=== PATIENT | female | born 1950 | race Caucasian/White ===

== ENCOUNTER → 2017-01-05 | Day surgery (SDC) | payer MEDICARE, MEDICAID ==
[~2017-01-05] MED LIST: Lactated Ringers 1,000 ML IV SCH; Propofol 200 MG/20 ML SDV IV ONE
[2017-01-05 08:31] VITALS: BP 130/72
--- NOTE | 2017-01-05 12:30 | OR ---
DATE OF OPERATION: 01/05/2017 PREOPERATIVE DIAGNOSIS: FOLLOWUP POLYPS. POSTOPERATIVE DIAGNOSIS: FOLLOWUP POLYPS. SURGEON: Yossi Arora MD PROCEDURE: FULL-LENGTH COLONOSCOPY. ANESTHESIA: ROLLER MAN due to morbid obesity, COPD and CHF. COMPLICATIONS: None. SPECIMEN: None. FINDINGS: 1. Full-length colonoscopy. 2. Mild sigmoid diverticulosis. RECOMMENDATIONS: Follow up colonoscopy in 5 years. INDICATIONS: The patient had a prior colonoscopy with polyps removed. She was told to have a 3-year followup by her surgeon. DESCRIPTION OF PROCEDURE: The patient was prepped and draped, placed in the left lateral decubitus position. A lubricated Olympus colonoscope inserted and easily advanced to the cecum where we directly visualized the ileocecal valve and appendiceal orifice. The bowel prep was excellent. Upon withdrawal of the scope throughout the entire length of the colon, I found no signs of any polyps, mass, ulceration, or bleeding sites. No vascular abnormalities or signs of colitis. The patient did have a few scattered diverticula in the sigmoid area which were mild in severity. The rectal vault appeared benign. Retroflexion of scope in the rectum showed no anal lesions. Air was suctioned. Scope removed without complication. ALEX/MONALISA /[id number]
== END ==
LOC: CC.SDS 06:30
PROVIDERS: ATTEND Family Medicine
DX: Z12.11 Encounter for screening for malignant neoplasm of colon (principal); Z86.010 Personal history of colon polyps; K57.30 Diverticulosis of large intestine without perforation or abscess without bleeding; I10 Essential (primary) hypertension; E78.00 Pure hypercholesterolemia, unspecified; E03.9 Hypothyroidism, unspecified; J44.9 Chronic obstructive pulmonary disease, unspecified; J45.909 Unspecified asthma, uncomplicated; I50.9 Heart failure, unspecified; E11.9 Type 2 diabetes mellitus without complications; Z88.0 Allergy status to penicillin; Z88.8 Allergy status to other drugs, medicaments and biological substances; Z91.018 Allergy to other foods; Z79.82 Long term (current) use of aspirin; Z79.899 Other long term (current) drug therapy; Z79.84 Long term (current) use of oral hypoglycemic drugs; Z90.710 Acquired absence of both cervix and uterus; Z98.890 Other specified postprocedural states
CPT/HCPCS: 82962; G0105; J2704; J7120; 00810

== ENCOUNTER 2020-03-04 22:15 | Emergency (ER) | payer MEDICARE, MEDICAID ==
[2020-03-04] MEDS ORDERED: Ondansetron 4 MG Tab.DIS PO ONE (22:16)
[2020-03-04 22:39] VITALS: BP 146/84; PULSE 88
--- NOTE | 2020-03-04 23:03 | EDM.PDOC ---
ED HPI GENERAL MEDICAL PROBLEM - General Chief Complaint: Gastrointestinal Problem Stated Complaint: vomiting Time Seen by Provider: 03/04/20 22:41 Source of Information: Reports: Patient History Limitations: Reports: No Limitations - History of Present Illness INITIAL COMMENTS - FREE TEXT/NARRATIVE: Janna is a 69 year old female who presents to the ER with complaints of vom iting x2 this evening. States "basically vomited up my whole supper". Denies nausea at present. Is currently moving in to a trailer house from her apartment and thinks it may be related to stress. Denies any abdominal pain. Was feeling fine all day until this happened. Denies diarrhea. No fevers. No exposure to covid. No sinus congestion, chest congestion, cough. Does complain of right w rist pain due to lifting a lot of boxes. Onset: Today, Sudden Duration: Minutes:, Improving Location: Reports: Abdomen Associated Symptoms: Reports: Nausea/Vomiting. Denies: Confusion, Chest Pain, Cough, Fever/Chills, Loss of Appetite, Malaise, Shortness of Breath, Syncope, Weakness - Related Data Allergies Allergy/AdvReac Type Severity Reaction Status Date / Time codeine Allergy Cannot Verified 03/04/20 22:44 Remember lisinopril Allergy Cannot Verified 03/04/20 22:44 Remember Penicillins Allergy Cannot Verified 03/04/20 22:44 Remember red dye Allergy Cannot Verified 03/04/20 22:44 Remember strawberry Allergy Cannot Verified 03/04/20 22:44 Remember Home Meds: Home Meds Acetaminophen 1,000 mg PO Q4HR PRN 01/04/17 [History] Albuterol Sulfate [Proair Hfa] 2 puff IH Q6HR PRN 01/04/17 [History] Aspirin [Halfprin] 81 mg PO DAILY 01/04/17 [History] Azelastine HCl 2 spray NS BID 01/04/17 [History] Betamethasone Valerate 1 applic TP BID 01/04/17 [History] Cholecalciferol (Vitamin D3) [Vitamin D3] 2,000 unit PO DAILY 01/04/17 [History] Ciclopirox Olamine [Ciclopirox] 1 applic TP BID 01/04/17 [History] Cyanocobalamin (Vitamin B-12) [Vitamin B-12] 1,000 mcg PO DAILY 01/04/17 [History] Diclofenac Sodium [Voltaren 1% Gel] 100 gm TOP QID PRN 01/04/17 [History] Fenofibrate Nanocrystallized [Fenofibrate] 145 mg PO DAILY 01/04/17 [History] Levothyroxine Sodium [Synthroid] 100 mcg PO DAILY 01/04/17 [History] Loperamide HCl [Anti-Diarrheal] 2 mg PO QID PRN 01/04/17 [History] Losartan Potassium 100 mg PO DAILY 01/04/17 [History] Magnesium 250 mg PO BID 01/04/17 [History] Metoprolol Succinate 25 mg PO DAILY 01/04/17 [History] Montelukast Sodium 10 mg PO DAILY 01/04/17 [History] Multivitamin [Gummi Bear Multivitamin] 1 each PO DAILY 01/04/17 [History] Oxybutynin Chloride [Oxybutynin Chloride ER] 5 mg PO DAILY 01/04/17 [History] Rosuvastatin Calcium [Crestor] 20 mg PO DAILY 01/04/17 [History] SitaGLIPtin [Januvia] 50 mg PO DAILY 01/04/17 [History] Tiotropium [Spiriva HandiHaler] 18 mcg INH DAILY 01/04/17 [History] Triamcinolone Acetonide [Triamcinolone Acetonide 0.1% Crm] 15 gm TOP TID 01/04/17 [History] metFORMIN HCl [Metformin HCl ER] 500 mg PO BID 01/04/17 [History] Past Medical History Cardiovascular History: Reports: High Cholesterol, Hypertension Genitourinary History: Reports: Other (See Below) (overactive bladder) Musculoskeletal History: Reports: Arthritis Endocrine/Metabolic History: Reports: Diabetes, Type II, Hypothyroidism Social & Family History - Tobacco Use Tobacco Use Status *Q: Unknown Ever Used Tobacco ED ROS GENERAL - Review of Systems Review Of Systems: See Below Constitutional: Denies: Fever, Chills, Malaise, Weakness HEENT: Denies: Ear Pain, Rhinitis, Throat Pain Respiratory: Denies: Shortness of Breath, Cough Cardiovascular: Denies: Chest Pain, Edema, Lightheadedness Endocrine: Denies: Fatigue GI/Abdominal: Reports: Nausea, Vomiting. Denies: Abdominal Pain : Reports: No Symptoms Musculoskeletal: Reports: Joint Pain Skin: Reports: No Symptoms Neurological: Reports: Weakness ED EXAM, GI/ABD - Physical Exam Exam: See Below Exam Limited By: No Limitations General Appearance: Alert, WD/WN, No Apparent Distress Ears: Normal External Exam, Normal TMs Nose: Normal Inspection, Normal Mucosa, No Blood Throat/Mouth: Normal Inspection, Normal Oropharynx Head: Normocephalic Neck: Normal Inspection, Supple, Non-Tender Respiratory/Chest: No Respiratory Distress, Lungs Clear, Normal Breath Sounds Cardiovascular: Regular Rate, Rhythm GI/Abdominal Exam: Normal Bowel Sounds, Soft, Non-Tender Extremities: Other (wrists are tender with palpation. Sore with range of motion. No noted injury, has been using repetitively while moving.) Neurological: Alert, Oriented Course - Vital Signs Last Recorded V/S: Last Vital Signs Temp 97.8 F 03/04/20 22:18 Pulse 88 03/04/20 22:18 Resp 18 03/04/20 22:18 BP 146/84 H 03/04/20 22:18 Pulse Ox 92 L 03/04/20 22:18 - Orders/Labs/Meds Orders: Active Orders 24 hr Category Date Time Status C-REACTIVE PROTEIN [CHEM] Stat Lab 03/04/20 22:30 Received COMPREHENSIVE METABOLIC PN,CMP [CHEM] Stat Lab 03/04/20 22:30 Received UA RFX YAMINI AND CULT IF INDIC [URIN] Stat Lab 03/04/20 22:37 Ordered Labs: Laboratory Tests 03/04/20 03/04/20 Range/Units 22:15 22:30 WBC 12.4 H (5.0-10.0) 10^3/uL RBC 4.55 (4.00-5.50) 10^6/uL Hgb 12.8 (12.0-16.0) g/dL Hct 39.6 (37.0-47.0) % MCV 87.0 (82.0-94.0) fL MCH 28.1 (27.0-32.0) pg MCHC 32.3 L (33.0-38.0) g/dL RDW Coeff of Brandy 14.4 (11.0-15.0) % Plt Count 204 (150-400) 10^3/uL Neut % (Auto) 64.6 (35-85) % Lymph % (Auto) 26.0 (10-55) % [place] % (Auto) 6.9 (0-16) % Eos % (Auto) 2.3 (0-5) % Baso % (Auto) 0.2 (0-3) % Neut # (Auto) 7.98 H (1.80-7.00) 10^3/uL Lymph # (Auto) 3.21 (1.00-4.80) 10^3/uL [place] # (Auto) 0.85 H (0.00-0.80) 10^3/uL Eos # (Auto) 0.29 (0.00-0.45) 10^3/uL Baso # (Auto) 0.03 10^3/uL SARS CoV-2 RNA Rapid ESEQUIEL Negative (NEGATIVE) - Re-Assessments/Exams Free Text/Narrative Re-Assessment/Exam: 03/04/20 23:11 labs are all stable. discussed with patient. She continues to deny any nausea or abdominal discomfort. Does have WBCs in urine but denies any urinary complaints. Will wait on culture. Departure - Departure Time of Disposition: 23:12 Disposition: Home, Self-Care 01 Condition: Good Clinical Impression: Vomiting - Discharge Information *PRESCRIPTION DRUG MONITORING PROGRAM REVIEWED*: No *COPY OF PRESCRIPTION DRUG MONITORING REPORT IN PATIENT JEWELS: No Instructions: Vomiting, Adult Additional Instructions: 1. Push fluids 2. Tylenol or ibuprofen for wrist discomfort 3. Ice to wrists 4. Avoid excessive lifting or use of wrists 5. Zofran 4 mg under the tongue every 6 hours as needed for nausea 6. Follow up for persisting concerns. Sepsis Event Note (ED) - Evaluation Sepsis Screening Result: No Definite Risk - Focused Exam Vital Signs: Vital Signs Temp Pulse Resp BP Pulse Ox 03/04/20 22:18 97.8 F 88 18 146/84 H 92 L - My Orders Last 24 Hours: My Active Orders 03/04/20 22:30 C-REACTIVE PROTEIN [CHEM] Stat COMPREHENSIVE METABOLIC PN,CMP [CHEM] Stat 03/04/20 22:37 UA RFX YAMINI AND CULT IF INDIC [URIN] Stat - Assessment/Plan Last 24 Hours: My Active Orders 03/04/20 22:30 C-REACTIVE PROTEIN [CHEM] Stat COMPREHENSIVE METABOLIC PN,CMP [CHEM] Stat 03/04/20 22:37 UA RFX YAMINI AND CULT IF INDIC [URIN] Stat
[2020-03-04] MEDS ORDERED: Take Home: Ondansetron 4 MG Tab.DIS, 2 Tab Pack PO ONE (23:08)
== END 2020-03-04 23:21 | disposition home or self-care (01) ==
LOC: CC.ED 22:15
DX: R11.2 Nausea with vomiting, unspecified (principal); I10 Essential (primary) hypertension; E78.00 Pure hypercholesterolemia, unspecified; E11.9 Type 2 diabetes mellitus without complications; E03.9 Hypothyroidism, unspecified; Z20.828 Contact with and (suspected) exposure to other viral communicable diseases; Z88.5 Allergy status to narcotic agent; Z88.0 Allergy status to penicillin; Z88.8 Allergy status to other drugs, medicaments and biological substances; Z91.041 Radiographic dye allergy status; Z91.018 Allergy to other foods; Z79.82 Long term (current) use of aspirin; Z79.899 Other long term (current) drug therapy; Z79.84 Long term (current) use of oral hypoglycemic drugs
CPT/HCPCS: 36415; 80053; 81001; 85025; 86140; 87086; 99283; 99284; A9270-GY; U0002

== ENCOUNTER 2021-03-30 08:45 | Emergency (ER) | payer MEDICARE, OTHER, MEDICAID ==
[2021-03-30 08:54] VITALS: BP 151/90; PULSE 81
[2021-03-30] MEDS ORDERED: Ondansetron 4 MG Tab.DIS PO ONE (09:02)
--- NOTE | 2021-03-30 09:18 | EDM.PDOC ---
ED HPI GENERAL MEDICAL PROBLEM - General Chief Complaint: Gastrointestinal Problem Stated Complaint: HAD COVID BOOSTER YESTERDAY/DRY HEAVES Time Seen by Provider: 03/30/21 08:55 Source of Information: Reports: Patient History Limitations: Reports: No Limitations - History of Present Illness INITIAL COMMENTS - FREE TEXT/NARRATIVE: Janna is a 70 year old female who presents to ER with complaints of nausea since getting her COVID vaccine booster yesterday. She states she has had dry heaves, no vomiting. Mild body aches. Feels chills and states has had a low grade temp of "98.9 and that is high for me". No cough, chest congestion, sore throat. No abdominal pain. Has not taken anything for body aches or nausea. Onset: Gradual Duration: Hour(s):, Waxing/Waning Location: Reports: Abdomen, Generalized Quality: Reports: Ache Severity: Mild Improves with: Reports: None Associated Symptoms: Reports: Fever/Chills, Malaise, Nausea/Vomiting. Denies: Confusion, Chest Pain, Cough, Loss of Appetite, Shortness of Breath - Related Data Allergies Allergy/AdvReac Type Severity Reaction Status Date / Time codeine Allergy Cannot Verified 03/30/21 08:54 Remember lisinopril Allergy Cannot Verified 03/30/21 08:54 Remember Penicillins Allergy Cannot Verified 03/30/21 08:54 Remember red dye Allergy Cannot Verified 03/30/21 08:54 Remember strawberry Allergy Cannot Verified 03/30/21 08:54 Remember Home Meds: Home Meds Levothyroxine Sodium [Synthroid] 100 mcg PO DAILY 01/04/17 [History] Losartan Potassium 100 mg PO DAILY 01/04/17 [History] Magnesium 400 mg PO DAILY 01/04/17 [History] Metoprolol Succinate 25 mg PO DAILY 01/04/17 [History] Rosuvastatin Calcium [Crestor] 20 mg PO DAILY 01/04/17 [History] Aspirin [Halfprin] 81 mg PO DAILY 03/04/20 [History] Cetirizine HCl 10 mg PO DAILY 03/04/20 [History] Furosemide [Lasix] 20 mg PO DAILY PRN 03/04/20 [History] Ipratropium/Albuterol Sulfate [Iprat-Albut 0.5-3(2.5) MG/3 ML] 1 vial INH Q4HR PRN 03/04/20 [History] Multivitamin [Multivitamins] 1 cap PO DAILY 03/04/20 [History] Neomycin/Polymyxin B/Dexametha [Zpkpbm-Duwia-Pzetffo Eye Ointm] 1 applic TOP BID 03/04/20 [History] Potassium Gluconate [Potassium] 99 mg PO DAILY 03/04/20 [History] Vitamin B Complex 1 cap PO DAILY 03/04/20 [History] amLODIPine Besylate [Amlodipine Besylate] 5 mg PO DAILY 03/04/20 [History] sitaGLIPtin Phos/Metformin HCl [Janumet 50-1,000 MG] 1 tab PO BIDMEALS 03/04/20 [History] Calcium Carbonate/Vitamin D3 [Calcium 500 + Vit D 400] 1 tab PO DAILY 03/30/21 [History] Fish Oil/[place]-3 Fatty Acids [Fish Oil 1,000 MG] 200 mg PO DAILY 03/30/21 [History] Ondansetron [Zofran ODT] 4 mg PO Q6H PRN #30 tab.dis 03/30/21 [Rx] Past Medical History Cardiovascular History: Reports: High Cholesterol, Hypertension Genitourinary History: Reports: Other (See Below) Musculoskeletal History: Reports: Arthritis Endocrine/Metabolic History: Reports: Diabetes, Type II, Hypothyroidism - Infectious Disease History Infectious Disease History: Reports: None - Past Surgical History Cardiovascular Surgical History: Reports: Valve Replacement GI Surgical History: Reports: Cholecystectomy Female Surgical History: Reports: Hysterectomy Social & Family History - Tobacco Use Tobacco Use Status *Q: Never Tobacco User - Caffeine Use Caffeine Use: Reports: Soda - Recreational Drug Use Recreational Drug Use: No ED ROS GENERAL - Review of Systems Review Of Systems: See Below Constitutional: Reports: Fever, Chills, Malaise HEENT: Reports: Rhinitis. Denies: Ear Pain, Sinus Problem, Throat Pain, Vertigo Respiratory: Denies: Shortness of Breath, Cough Cardiovascular: Denies: Chest Pain, Edema, Lightheadedness Endocrine: Reports: Fatigue GI/Abdominal: Reports: Nausea. Denies: Abdominal Pain, Constipation, Diarrhea, Vomiting : Reports: No Symptoms Musculoskeletal: Reports: Muscle Pain Skin: Reports: No Symptoms Neurological: Reports: Weakness Psychiatric: Reports: No Symptoms ED EXAM, GI/ABD - Physical Exam Exam: See Below Exam Limited By: No Limitations General Appearance: Alert, WD/WN, No Apparent Distress Ears: Normal External Exam, Normal TMs Nose: Normal Inspection, Normal Mucosa, No Blood Throat/Mouth: Normal Inspection, Normal Oropharynx Head: Normocephalic Neck: Normal Inspection, Supple, Non-Tender Respiratory/Chest: No Respiratory Distress, Lungs Clear, Normal Breath Sounds Cardiovascular: Regular Rate, Rhythm GI/Abdominal Exam: Normal Bowel Sounds, Soft, Non-Tender Extremities: Normal Inspection, Pedal Edema (1+) Neurological: Alert, Oriented Skin Exam: Warm, Dry Course - Vital Signs Last Recorded V/S: Last Vital Signs Temp 100.1 F 03/30/21 08:51 Pulse 81 03/30/21 08:51 Resp 16 03/30/21 08:51 BP 151/90 H 03/30/21 08:51 Pulse Ox 96 03/30/21 08:51 - Orders/Labs/Meds Meds: Medications Discontinued Medications Generic Name Dose Route Start Last Admin Trade Name Freq PRN Reason Stop Dose Admin Ondansetron HCl 4 mg 03/30/21 09:02 03/30/21 09:06 Ondansetron 4 Mg Tab.Dis PO 03/30/21 09:03 4 mg ONETIME ONE Administration Departure - Departure Time of Disposition: 09:16 Disposition: Home, Self-Care 01 Condition: Good Clinical Impression: Nausea after vaccination - Discharge Information *PRESCRIPTION DRUG MONITORING PROGRAM REVIEWED*: No *COPY OF PRESCRIPTION DRUG MONITORING REPORT IN PATIENT JEWELS: No Prescriptions: Ondansetron [Zofran ODT] 4 mg PO Q6H PRN #30 tab.dis PRN Reason: Nausea Instructions: Nausea, Adult Referrals: Martha Irene ASSISTANT CASE MANAGER [Primary Care Provider] - Forms: ED Department Discharge Additional Instructions: 1. Push fluids 2. Zofran 4 mg under your tongue every 4-6 hours as needed for nausea 3. Small soft meals 4. Follow up if persisting concerns. Sepsis Event Note (ED) - Evaluation Sepsis Screening Result: No Definite Risk - Focused Exam Vital Signs: Vital Signs Temp Pulse Resp BP Pulse Ox 03/30/21 08:51 100.1 F 81 16 151/90 H 96
== END 2021-03-30 09:23 | disposition home or self-care (01) ==
LOC: CC.ED 08:45 → SUPCPDRO 08:45 → CC.ED 09:23
DX: R11.0 Nausea (principal); T50.B95A Adverse effect of other viral vaccines, initial encounter; R60.0 Localized edema; E78.00 Pure hypercholesterolemia, unspecified; I10 Essential (primary) hypertension; E03.9 Hypothyroidism, unspecified; E11.9 Type 2 diabetes mellitus without complications; Z88.5 Allergy status to narcotic agent; Z88.0 Allergy status to penicillin; Z91.018 Allergy to other foods; Z88.8 Allergy status to other drugs, medicaments and biological substances; Z79.82 Long term (current) use of aspirin; Z79.899 Other long term (current) drug therapy
CPT/HCPCS: 99283; A9270-GY

== ENCOUNTER 2021-09-02 15:34 | Emergency (ER) | payer MEDICARE, OTHER, MEDICAID ==
[2021-09-02 15:46] VITALS: BP 167/73; PULSE 81
[2021-09-02] MEDS ORDERED: Lidocaine 1% 5 ML VIAL INJECT ONE (15:53)
== END 2021-09-02 17:10 | disposition home or self-care (01) ==
LOC: CC.ED 15:34
DX: S62.617A Displaced fracture of proximal phalanx of left little finger, initial encounter for closed fracture (principal); S63.502A Unspecified sprain of left wrist, initial encounter; Z88.0 Allergy status to penicillin; Z88.5 Allergy status to narcotic agent; Z91.041 Radiographic dye allergy status; Z91.018 Allergy to other foods; Z79.899 Other long term (current) drug therapy; Z79.82 Long term (current) use of aspirin; W23.1XXA Caught, crushed, jammed, or pinched between stationary objects, initial encounter
CPT/HCPCS: 26605; 73110-LT; 73140-F4; 99283-25

== ENCOUNTER → 2022-05-19 | Day surgery (SDC) | payer MEDICARE, OTHER, MEDICAID ==
[~2022-05-19] MED LIST changes: +Ketamine 200 MG/20 ML MDV ONE; -Propofol 200 MG/20 ML SDV IV ONE; +Propofol 200 MG/20 ML SDV ONE; +fentaNYL 50 MCG/ML SDV ONE
[2022-05-19 08:52] VITALS: BP 142/76; PULSE 65
== END ==
LOC: CC.SDS 07:05
PROVIDERS: ATTEND Family Medicine
DX: K57.30 Diverticulosis of large intestine without perforation or abscess without bleeding (principal); I13.0 Hypertensive heart and chronic kidney disease with heart failure and stage 1 through stage 4 chronic kidney disease, or unspecified chronic kidney disease; I50.9 Heart failure, unspecified; E11.22 Type 2 diabetes mellitus with diabetic chronic kidney disease; N18.2 Chronic kidney disease, stage 2 (mild); J44.9 Chronic obstructive pulmonary disease, unspecified; F41.8 Other specified anxiety disorders; E78.5 Hyperlipidemia, unspecified; E03.9 Hypothyroidism, unspecified; I10 Essential (primary) hypertension; E55.9 Vitamin D deficiency, unspecified; Z79.899 Other long term (current) drug therapy; Z88.0 Allergy status to penicillin; Z86.010 Personal history of colon polyps; Z88.8 Allergy status to other drugs, medicaments and biological substances; Z88.5 Allergy status to narcotic agent; Z91.018 Allergy to other foods; Z79.82 Long term (current) use of aspirin; Z79.890 Hormone replacement therapy; Z98.890 Other specified postprocedural states
CPT/HCPCS: 88305; J2704; J3010; J7120

== ENCOUNTER 2023-01-04 13:13 | Emergency (ER) | payer MEDICARE, MEDICAID ==
[2023-01-04 13:37] VITALS: BP 156/62; PULSE 84
== END 2023-01-04 14:08 | disposition home or self-care (01) ==
LOC: CC.ED 13:13
DX: K59.01 Slow transit constipation (principal); E78.00 Pure hypercholesterolemia, unspecified; I10 Essential (primary) hypertension; M19.90 Unspecified osteoarthritis, unspecified site; E11.9 Type 2 diabetes mellitus without complications; E03.9 Hypothyroidism, unspecified; Z88.5 Allergy status to narcotic agent; Z88.0 Allergy status to penicillin; Z91.041 Radiographic dye allergy status; Z91.018 Allergy to other foods; Z79.899 Other long term (current) drug therapy; Z79.82 Long term (current) use of aspirin
CPT/HCPCS: 99283; 99284